=== PATIENT | male | born 1995 | race Caucasian/White ===

== ENCOUNTER 2018-01-19 05:50 | Emergency (ER) | payer OTHER ==
[~2018-01-19] VITALS: Ht 193 cm; Wt 68.0 kg
[2018-01-19 05:53] VITALS: Ht 193 cm; Wt 68.0 kg
[2018-01-19 07:21] VITALS: BP 131/78
== END 2018-01-19 07:21 | disposition home or self-care (01) ==
LOC: ED 05:50
DX: S05.12XA Contusion of eyeball and orbital tissues, left eye, initial encounter (principal); Y04.0XXA Assault by unarmed brawl or fight, initial encounter; Y93.89 Activity, other specified; Y92.89 Other specified places as the place of occurrence of the external cause; Y99.8 Other external cause status